=== PATIENT | male | born 1960 | race Caucasian/White ===

== ENCOUNTER 2016-06-30 18:36 | Emergency (ER) | payer MEDICAID ==
[~2016-06-30] VITALS: Ht 182.9 cm; Wt 83.9 kg
[~2016-06-30 18:36] MED LIST: MEDICAL MARIJUANA
[2016-06-30] MEDS ORDERED: CEFTRIAXONE 500 MG VIAL IM ONE (20:00)
[2016-06-30] MEDS ORDERED: AZITHROMYCIN 250 MG TABLET PO ONE (20:00)
[2016-06-30] MEDS ORDERED: LEVOFLOXACIN 500 MG TABLET PO ONE (20:15)
[2016-06-30] MEDS ORDERED: AZITHROMYCIN 250 MG TABLET ONE (20:22)
[2016-06-30] MEDS ORDERED: CEFTRIAXONE 500 MG VIAL ONE (20:22)
--- NOTE | 2016-06-30 20:39 | NUR ---
Patient discharged to home in stable conditon. Written and verbal after care instructions given. Patient verbalizes understanding of instructions.
[2016-06-30] MEDS ORDERED: LEVOFLOXACIN 500 MG TABLET ONE (20:45)
== END 2016-06-30 20:41 | disposition home or self-care (01) ==
LOC: ER 18:41
DX: Z76.0 Encounter for issue of repeat prescription (principal); I10 Essential (primary) hypertension; F10.20 Alcohol dependence, uncomplicated; F17.200 Nicotine dependence, unspecified, uncomplicated
CPT/HCPCS: A4663; J0696; Q0144

== ENCOUNTER 2017-02-16 12:39 | Emergency (ER) | payer MEDICAID ==
[~2017-02-16] VITALS: Ht 182.9 cm; Wt 83.9 kg
--- NOTE | 2017-02-16 12:57 | NUR ---
Patient discharged to home in stable conditon. Written and verbal after care instructions given. Patient verbalizes understanding of instructions.
== END 2017-02-16 12:57 | disposition home or self-care (01) ==
LOC: ER 12:39
DX: K05.10 Chronic gingivitis, plaque induced (principal); Z59.0 Homelessness; I10 Essential (primary) hypertension; F17.200 Nicotine dependence, unspecified, uncomplicated
CPT/HCPCS: A4663

== ENCOUNTER 2021-03-09 10:09 | Emergency (ER) | payer MEDICAID, OTHER ==
[~2021-03-09] VITALS: Ht 182.9 cm; Wt 49.0 kg
[2021-03-09 11:44] LABS: HEMATOCRIT 41.4 % (36.7-47.1); MEAN CORPUSCULAR HEMOGLOBIN 28.8 uug (23.8-33.4); MEAN CORPUSCULAR VOLUME 85.3 fL (73.0-96.2); PLATELET COUNT (AUTO) 197 K/uL (152-348)
[2021-03-09 11:52] LABS: CREATININE 2.5 mg/dL (0.6-1.3); POTASSIUM 5.1 mmol/L (3.5-5.1)
[2021-03-09 11:58] LABS: *BILIRUBIN,URIN NEGATIVE (NEGATIVE); *CLARITY,URINE CLEAR (CLEAR); *COLOR,URINE YELLOW (YELLOW); *KETONES,URINE NEGATIVE (NEGATIVE); *UROBILINOGEN,URINE 0.2 E.U./dl (NORMAL); LEUKOCYTE ESTERASE ,URINE NEGATIVE (NEGATIVE); NITRITE, URINE NEGATIVE (NEGATIVE); PH,URINE 5.5 (5.0-8.0); UGLUCOSE NEGATIVE (NEGATIVE)
[2021-03-09] MEDS ORDERED: PENI500T PO (11:59)
[2021-03-09 12:04] LABS: BILIRUBIN,TOTAL 0.4 mg/dL (0.2-1.0); TOTAL PROTEIN, SERUM 7.4 g/dL (6.4-8.2)
[2021-03-09 12:07] LABS: *BLOOD, URINE TRACE (NEGATIVE)
[2021-03-09 12:17] VITALS: BP 144/88
[2021-03-09 19:39] LABS: RBC,URINE 0-3 /HPF (0-3)
[2021-03-09 19:40] LABS: BACTERIA,URINE FEW /HPF (NONE SEEN); SQUAMOUS EPITHELIAL CELL,UR FEW /HPF (NONE SEEN)
== END 2021-03-09 12:17 | disposition home or self-care (01) ==
LOC: ER 10:14
DX: K08.89 Other specified disorders of teeth and supporting structures (principal); K04.7 Periapical abscess without sinus; I12.9 Hypertensive chronic kidney disease with stage 1 through stage 4 chronic kidney disease, or unspecified chronic kidney disease; N18.9 Chronic kidney disease, unspecified; Z59.00 Homelessness unspecified
CPT/HCPCS: 36415; 85025; A4663